=== PATIENT | male | born 1945 | race Caucasian/White ===

== ENCOUNTER 2017-03-14 10:53 | Emergency (ER) | payer MEDICARE, OTHER ==
[~2017-03-14] VITALS: Ht 189.2 cm; Wt 93.7 kg
[~2017-03-14 10:53] MED LIST: AMLO10TA4 PO; LISI-170 PO; ROSU5TAB PO
[2017-03-14] MEDS ORDERED: MECLIZINE CHEWABLE 25 MG TAB ONE (11:41)
[2017-03-14] MEDS ORDERED: ASPI-515 PO (11:48)
[2017-03-14 12:00] LABS: HEMATOCRIT 45.9 % (39.2-51.8); HEMOGLOBIN 15.5 g/dL (13.7-18.0); WHITE BLOOD COUNT 7.8 x10^3/uL (3.4-10)
[2017-03-14] MEDS ORDERED: MECLIZINE CHEWABLE 25 MG TAB PO ONE (12:00)
[2017-03-14 12:11] LABS: ASPARTATE AMINO TRANSFERASE 17 U/L (15-37); BLOOD UREA NITROGEN 21 mg/dL (7-18)
[2017-03-14 12:16] LABS: IS PT STATUS REG ER OR PRE ER? YES
[2017-03-14 12:50] VITALS: BP 122/75
== END 2017-03-14 12:52 | disposition home or self-care (01) ==
LOC: ED 12:12
DX: R42 Dizziness and giddiness (principal); Z87.891 Personal history of nicotine dependence
CPT/HCPCS: 36415; 80053; 83605; 84484; 85025; 93005; 99285

== ENCOUNTER → 2017-06-29 | Outpatient (CLI) | payer MEDICARE, OTHER ==
[~2017-06-29] MED LIST changes: +ASPI-515 PO
== END | disposition home or self-care (01) ==
LOC: CFH 07:52
PROVIDERS: ATTEND Internal Medicine Cardiovascular Disease
DX: I34.0 Nonrheumatic mitral (valve) insufficiency (principal); I25.10 Atherosclerotic heart disease of native coronary artery without angina pectoris; I10 Essential (primary) hypertension; Z85.841 Personal history of malignant neoplasm of brain
CPT/HCPCS: 78452; 93017; 93306; A9502

== ENCOUNTER → 2018-04-24 | Outpatient (CLI) | payer MEDICARE, OTHER | END | disposition home or self-care (01) | LOC: CVU 07:12 | PROVIDERS: ATTEND Internal Medicine | DX: L85.0 Acquired ichthyosis (principal); M79.661 Pain in right lower leg; M79.662 Pain in left lower leg; Z85.46 Personal history of malignant neoplasm of prostate | CPT/HCPCS: 93922; 93925 ==

== ENCOUNTER → 2018-05-09 | Outpatient (CLI) | payer MEDICARE, OTHER | END | disposition home or self-care (01) | LOC: CFH 06:55 | PROVIDERS: ATTEND Licensed Practical Nurse | DX: Z13.6 Encounter for screening for cardiovascular disorders (principal); Z87.891 Personal history of nicotine dependence | CPT/HCPCS: 76706 ==

== ENCOUNTER → 2018-05-19 | Outpatient (CLI) | payer MEDICARE, OTHER | END | disposition home or self-care (01) | LOC: CVU 04-24 08:00 | PROVIDERS: ATTEND Internal Medicine | DX: I87.2 Venous insufficiency (chronic) (peripheral) (principal); I83.92 Asymptomatic varicose veins of left lower extremity | CPT/HCPCS: 93970 ==

== ENCOUNTER → 2018-09-12 | Outpatient (CLI) | payer MEDICARE, OTHER | END | disposition home or self-care (01) | LOC: RAD 11:34 | PROVIDERS: ATTEND Urology | DX: N20.0 Calculus of kidney (principal); M47.816 Spondylosis without myelopathy or radiculopathy, lumbar region; Z87.442 Personal history of urinary calculi; Z85.46 Personal history of malignant neoplasm of prostate | CPT/HCPCS: 36415; 74018; 84153 ==